=== PATIENT | male | born 1980 | race Caucasian/White ===

== ENCOUNTER 2020-01-06 09:46 | Emergency (ER) | payer OTHER ==
[~2020-01-06] VITALS: Ht 167.6 cm; Wt 68.2 kg
[2020-01-06 09:52] VITALS: BP 160/87; Ht 167.6 cm; Wt 68.2 kg
[2020-01-06] MEDS ORDERED: LISINOPRIL5 MG PO (09:56)
[2020-01-06 10:33] LABS: UDS - AMPHET NEGATIVE QUAL (NEGATIVE); UDS - BARB NEGATIVE QUAL (NEGATIVE); UDS - BENZO NEGATIVE QUAL (NEGATIVE); UDS - COCAINE NEGATIVE QUAL (NEGATIVE); UDS - OPIATE NEGATIVE QUAL (NEGATIVE); UDS - PCP NEGATIVE QUAL (NEGATIVE); UDS - THC POSITIVE QUAL (NEGATIVE)
[2020-01-06 10:41] LABS: BASOPHILS 0.5 % (0-2); HEMATOCRIT 44.6 % (42.0-54.0); HEMOGLOBIN 15.7 g/dL (13.5-17.5); IMMATURE GRANULOCYTES 0.2 % (0-5); LYMPHOCYTES 30.6 % (15-50); MCHC 35.2 g/dL (31.0-37.0); MEAN PLATELET VOLUME 9.5 fL (7.4-10.4); MONOCYTES 8.9 % (2-11); NEUTROPHILS 58.8 % (40-80); PLATELET COUNT 297 10x3/uL (130-400); RBC 5.07 10x6/uL (4.20-6.10); RDW 12.7 % (11.5-14.5); WBC 6.3 10x3/uL (4.8-10.8)
[2020-01-06 10:43] LABS: CALC OSMOLALITY 280 mosm/kg (275-300); CARBON DIOXIDE 29.3 mmol/L (21.0-32.0); CHLORIDE - SERUM 102 mmol/L (98-107); CREATININE - SERUM 1.1 mg/dL (0.6-1.3); GLUCOSE 135 mg/dL (74-106); POTASSIUM - SERUM 3.7 mmol/L (3.5-5.1); SODIUM 140 mmol/L (136-145); UREA NITROGEN 13 mg/dL (7-18); eGFR NON AFRICAN AMERICAN 80 mL/min (90-120)
[2020-01-06 10:48] LABS: ALBUMIN 4.5 g/dL (3.4-5.0); ALKALINE PHOSPHATASE 54 U/L (30-120); ALT (SGPT) 16 U/L (10-68); BILIRUBIN - TOTAL 0.49 mg/dL (0.2-1.3); PROTEIN - SERUM 7.9 g/dL (6.4-8.2)
[2020-01-06] MEDS ORDERED: VISTARIL25 MG PO (11:05)
--- NOTE | 2020-01-06 12:15 | NUR ---
DR. ARREOLA NOTIFIED AND REVIEWED PT'S BEHAVIOR AND ASSESSMENT RESULTS. PT IS A LOW RISK PER DR. ARREOLA. DR. ARREOLA STATED TO GIVE RESOURCES TO PT AT TIME OF DISCHARGE. NO FURTHER ORDERS AT THIS TIME. RESOURCES REVIEWED WITH PATIENT AND HE VERBALIZED UNDERSTANDING.
== END 2020-01-06 12:47 | disposition home or self-care (01) ==
LOC: D.ER 09:46
PROVIDERS: Emergency Medicine
DX: F41.9 Anxiety disorder, unspecified (principal); R53.1 Weakness; I10 Essential (primary) hypertension